=== PATIENT | male | born 1965 | race Caucasian/White ===

== ENCOUNTER 2019-04-15 06:58 | Inpatient (IN) | payer BC, OTHER ==
[~2019-04-15] VITALS: Ht 172.7 cm; Wt 79.8 kg
--- NOTE | ~2019-04-15 | O ---
[facility] [place] [address] OPERATIVE REPORT Name: NAIN GARCIA Room #: 457-P ADM IN M.R.#: [id number] Admission: 04/15/19 ������������������ Attend Phys: Greg Diaz MD Discharge: ������������������ Date of : 63 Report #: [id number] THIS REPORT FOR: //name// CC: [facility] physician/PCP Greg Franco DATE OF SERVICE: 04/16/2019 SURGEON: Rik Douglas DPM PREOPERATIVE DIAGNOSES: Osteomyelitis, right fifth metatarsal with nonhealing ulceration. POSTOPERATIVE DIAGNOSES: Osteomyelitis, right fifth metatarsal with nonhealing ulceration. PROCEDURE: 1. Resection of right fifth metatarsal and fifth toe (total fifth ray resection). 2. Skin flap, right foot. 3. Incision and drainage of abscess, right foot. ANESTHESIA: MAC. INJECTABLES: 28 mL of 0.5% Marcaine plain. HEMOSTASIS: Right ankle tourniquet at 275 mmHg. ESTIMATED BLOOD LOSS: Negligible. SUTURES: 3-0 nylon. SPECIMENS: Right fifth metatarsal and fifth toe. CULTURES: 1. Bone, right fifth metatarsal, aerobic and anaerobic. 2. Soft tissue, right foot, aerobic and anaerobic. COMPLICATIONS: None. DESCRIPTION OF PROCEDURE: The patient was brought to the OR and placed on the table supine with induction of MAC anesthesia. A well-padded right ankle pneumatic tourniquet was placed. Local anesthetic block was given to the foot, and the extremity was prepped and draped aseptically. The foot was exsanguinated with inflation of the tourniquet. A #10 scalpel was used to [facility] [address] [place] [address] OPERATIVE REPORT Name: NAIN GARCIA Room #: 457-P ADM IN M.R.#: [id number] Admission: 04/15/19 ������������������ Attend Phys: Greg Diaz MD Discharge: ������������������ Date of : 63 Report #: [id number] create a linear incision over the lateral fifth metatarsal extending circumferentially around the fifth toe. The fifth toe was disarticulated at the MTP joint and sent for pathology. Soft tissue envelope was dissected off the fifth metatarsal and there was extensive soft tissue infection with underlying necrotic bone. The distal fifth metatarsal was fractured, and the bone was discolored, soft, consistent with osteomyelitis. The entire fifth metatarsal shaft was discolored with surrounding infection; therefore, I disarticulated the entire fifth metatarsal from the cuboid and sent for pathology. A portion of bone was sent for aerobic and anaerobic cultures. Surrounding soft tissue was sent for the same cultures. I performed extensive soft tissue debridement and cauterization of the wound. It was irrigated with saline and bacitracin. I remodeled the skin and sutured the plantar lateral flap dorsally with 3-0 nylon. The entire wound was closed over a 0.5 inch Nu Gauze wick drain. The foot was cleansed and dried and wrapped with a sterile compressive bandage. I used Betadine-soaked Adaptic, fluffs, ABDs, Kerlix and Bradley bandages. The patient left the OR with no complications noted. ��������������������������������������������� ���������������������������������������� By: ��������������������������������������������� 0750 0808 Rik Douglas DPM /nt
[2019-04-15 10:40] VITALS: BP 144/68
[2019-04-15 11:29] LABS: ABSOLUTE NEUTROPHILS 5.5 thou/uL (1.4-8.2); BASOPHILS 0.8 % (0.0-2.0); EOSINOPHILS 0.3 % (0.0-3.0); HEMATOCRIT 41.2 % (42.0-52.0); HEMOGLOBIN 14.3 gm/dL (14.0-18.0); LYMPHOCYTES 13.7 % (24.0-44.0); MCH 30.8 pg (26.0-34.0); MCHC 34.8 g/dL (28.0-37.0); MCV 88.5 fL (80.0-100.0); MONOCYTES 8.7 % (1.0-8.0); PLATELET COUNT 269 thou/uL (150-400); POLYS 76.5 % (36.0-66.0); RBC 4.66 mil/uL (4.50-6.00); RDW 12.5 % (10.5-14.5); WBC 7.2 thou/uL (4.0-11.0)
[2019-04-15 11:43] LABS: ALBUMIN 2.9 g/dL (3.4-5.0); CALCIUM 9.5 mg/dL (8.5-10.1); CREATININE 1.2 mg/dL (0.7-1.3); MAGNESIUM 1.6 mg/dL (1.8-2.4); POTASSIUM 4.5 mmol/L (3.5-5.1); TOTAL BILIRUBIN 0.7 mg/dL (<0.1-1.0); TOTAL PROTEIN 7.5 g/dL (6.4-8.2)
[2019-04-15 15:00] VITALS: BP 134/66
[2019-04-15] MEDS ORDERED: LIPITOR10 MG PO (15:36)
[2019-04-15] MEDS ORDERED: LANTUS SUBQ (15:37)
[2019-04-15] MEDS ORDERED: CLEOCIN HCL150 MG PO (15:38)
--- NOTE | 2019-04-15 16:17 | NUR ---
DIRECT ADMIT FOR RIGHT FOOT WOUND. ALERT X4 FROM HOME WITH . HOME MEDS RECONCILED. AC/HS, PLACED ON FALL PRECAUTIONS DUE TO DRESSING ON RIGHT FOOT. ADMISSION HISTORY AND ASSESMENT COMPLETE.
[2019-04-15 19:56] VITALS: BP 118/58
--- NOTE | 2019-04-16 03:59 | NUR ---
ASSUMED CARE AROUND 1900. AXOX4. WOUND CARE DONE BECAUSE PER PT, WOUND WAS NEITHER MEDICATION WAS APPLIED NOR WOUND WAS CLEANED. DRESSING WAS CHANGED PER MD ORDER. RESPONDED TO ID CONSULT. NNO AT THIS TIME. R FOOT ELEVATED. NO S/S ACUTE DISTRESS NOTED OR REPORTED AT THIS TIME. WILL CONT TO MONITOR FOR ANY CHANGES IN CONDITION.
[2019-04-16 08:29] VITALS: BP 126/63
--- NOTE | 2019-04-16 12:43 | NUR ---
Assess due to pt with diabetic foot wound, wound care is following. Hx diabetes, poor controlled, A1C is pending, hospital BG [phone]. No significant wt changes. Appetite was reported as good and aware of need to eat adequate protein at meals. Pt requesting diet education. At this time, was getting ready to eat lunch, so requested to come back tomorrow. Low nutrition risk otherwise.
--- NOTE | 2019-04-16 14:38 | NUR ---
PT ADMITTED RELATED TO RIGHT FOOT WOUND. CM REVIEWED CHART AND SPOKE WITH CARE TEAM. CM MET WITH PT AT BEDSIDE THIS DAY. PT IS A&O X4. CM ROLE INTRODUCED. PT INDICATED HE LIVES IN A HOUSE WITH HIS AND 2 KIDS. PT INDICATED THERE ARE 9 STEPS TO ENTER AND 5 STEPS INSIDE. 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 PT INDICATED NO DME OF HH HX. PT'S PCP IS ARTHUR DSOS. PT INDICATED HE ANTICIPATES RETURNING HOME ONCE MEDICALLY STABLE. CM TO FOLLOW INDICATED WITH DC PLANNING.
[2019-04-16 15:02] VITALS: BP 148/73
--- NOTE | 2019-04-16 18:11 | NUR ---
Received awake on bed. Due medications given as prescribed. With wound at Right foot, seen by wound nurse today-dressing changed. For possible amputation, a/w schedule and further plans. On blood sugar monitoring- sliding scale insulin given as prescribed. Visited by relatives today. On room air. With SL at R arm, patent, infusing well. A+Ox4. Pt with podiatry consult- US called for consult. Lab called, urine specimen to be sent- specimen sent down to laboratory. Pt seen by Dr. Collazo this afternoon, pt's wound checked, wound re-dressed. Vital signs stable. No complaints of pain.
[2019-04-16 18:27] LABS: URINE BILIRUBIN NEGATIVE (Negative); URINE BLOOD NEGATIVE (Negative); URINE CLARITY CLEAR; URINE COLOR YELLOW; URINE GLUCOSE-RANDOM* 3+ (Negative); URINE KETONES TRACE (Negative); URINE LEUKOCYTES-REFLEX NEGATIVE (Negative); URINE NITRITE-REFLEX NEGATIVE (Negative); URINE PROTEIN (DIPSTICK) NEGATIVE (Negative); URINE SPECIFIC GRAVITY <= 1.005 (1.005-1.035); URINE UROBILINOGEN 0.2 E.U./dl (0.2-1.0)
[2019-04-16 19:11] VITALS: BP 134/75
[2019-04-17 00:07] LABS: GLYCOHEMOGLOBIN (HGB A1C) 13.1 % (4.8-5.6)
[2019-04-17 03:26] VITALS: BP 132/74
[2019-04-17 07:11] VITALS: BP 142/75
--- NOTE | 2019-04-17 08:58 | NUR ---
progress pt up ad sandie vss, iv antibiotics given as ordered, rates pain a 2 and denies need for medication. npo since mn pending upcoming right 5th toe amputation
[2019-04-17 14:32] VITALS: BP 146/77
--- NOTE | 2019-04-17 14:42 | NUR ---
PT GOING TO OR THIS DAY FOR SURGCAL DEBRIDEMENT. CM TO FOLLOW INDICATED REGARDING DC PLANNING.
--- NOTE | 2019-04-17 15:03 | NUR ---
WOUND CARE FOLLOW UP; DR PATEL AND ACE BARRETT SAW THIS PATIENT TODAY. NO CHANGES TODAY. CONTINUE DAKINS ORDERED.
[2019-04-17 19:41] VITALS: BP 125/64
--- NOTE | 2019-04-17 20:08 | NUR ---
ASSUMED CARE OF PATIENT AT 0715, PATIENT ALERT AND ORIENTED X 4. PATIENT UP AD FLOYD. RIGHT FOOT WOUND, DRESSING CHANGED THIS AFTERNOON. PATIENT NPO TODAY FOR SURGERY, DR PENA, RIGHT FIFTH TOE AMPUTATED. SURGERY WENT WELL, NO PAIN AFTER ARRIVAL TO THE UNIT. REPORT FROM YURY/RN, VITAL SIGNS STABLE. PATIENT RECEIVED IV ANTIBIOTICS ZOSYN AND VANCO IN SURGERY. PATIENT HAS RIGHT FOREARM IV IN PLACE AND REMAINS PATENT. X-RAY DONE POST OP TO RIGHT FOOT. BLOOD SUGAR 200, RECEIVED 3 UNITS, AND HAD DINNER TRAY. WILL CONTINUE TO MONITOR.
[2019-04-18 04:56] VITALS: BP 119/61
--- NOTE | 2019-04-18 06:22 | NUR ---
Assumed care at 1845. Pt resting in bed. AOX4. VSS. Post op vitals stable. Pt was able to urinate. Hasnt ambulated. Been using a urinal. Right foot dressing CDI. Called CHILD NUTRITION DIRECTOR because tylenol wasnt helping with pain. Got [place] approved. Ordered and received pressure boots from CS. Call light within reach. Bed in lowest position. Will continue to monitor.
[2019-04-18 07:24] VITALS: BP 113/72
--- NOTE | 2019-04-18 12:21 | HC ---
[facility] [place] [address] CONSULTATION Name: NAIN GARCIA Room #: 457-P ADM IN M.R.#: [id number] Admission: 04/15/19 ������������������ Attend Phys: Greg Diaz MD Discharge: ������������������ Date of : 63 Report #: [id number] THIS REPORT FOR: //name// CC: FAM physician/PCP Greg Franco DATE OF SERVICE: 04/16/2019 HISTORY OF PRESENT ILLNESS: This is a 53-year-old male patient who I saw in the clinic yesterday and admitted to the hospital. The patient is a 53-year-old male patient with history of diabetes over the last 3 decades. He has been poorly controlled and has sought most of his medical care at urgent cares. He has not been monitoring his blood glucose. He has developed an ulceration to his right fifth MTP region with subsequent cellulitis. It has been nonhealing despite local care. He has been on oral clindamycin and has had no improvement. He was referred to the wound center and due to the degree of infection and exposed bone, he was admitted for further evaluation and treatment. PAST MEDICAL HISTORY: Positive for diabetes mellitus, some clinical evidence of peripheral neuropathy is noted. He has hypertension, hyperlipidemia as well. SOCIAL HISTORY: The patient is a former smoker, admits to alcohol use on special occasions. No drug use. FAMILY HISTORY: Noncontributory. MEDICATIONS: Include atorvastatin, insulin, clindamycin. ALLERGIES: No known drug allergies. REVIEW OF SYSTEMS: CONSTITUTIONAL: The patient denies fever, chills or weight loss. NEUROLOGICAL: The patient does have some diminished light touch sensation of his lower extremities. ENT: The patient denies earache, nasal drainage, sore throat. CARDIOVASCULAR: The patient denies chest pain, palpitations or diaphoresis. PULMONARY: The patient denies cough or shortness of breath. GASTROINTESTINAL: The patient denies nausea, vomiting, diarrhea, abdominal pain. ORTHOPEDIC: The patient is aware of the ulceration, redness and drainage and some pain to his right foot. Other systems are negative. PHYSICAL EXAMINATION: VITAL SIGNS: At this time include temperature of 36.8, pulse 83, respiratory [address] [address] CONSULTATION Name: NAIN GARCIA Room #: 457-P ADM IN M.R.#: [id number] Admission: 04/15/19 ������������������ Attend Phys: Greg Diaz MD Discharge: ������������������ Date of : 63 Report #: [id number] rate 16, blood pressure 126/63. GENERAL: This is a well-developed, well-nourished patient who appears to be in no distress. HEENT: Head normocephalic. Nose and throat are clear. NECK: Supple. LUNGS: Clear. HEART: Regular. ABDOMEN: Soft. Bowel sounds present. EXTREMITIES: Lower extremities demonstrate palpable distal pulses. Normal capillary refill. He has significant erythema involving the lateral aspect of the right foot as well as a large ulceration with exposed bone at the fifth MTP. Since he has been on intravenous antibiotics, some of the redness has improved. LABORATORY DATA: Sodium 133, potassium 4.5, chloride 95, CO2 of 35, BUN 20, creatinine 1.2, glucose is 409, total bilirubin 0.7, AST 17, ALT 27, alkaline phosphatase 201. C-reactive protein 63.2, total protein 7.5, albumin is 2.9. White blood cell count 7.2 with a hemoglobin of 14.3. Sed rate is 47. MRI demonstrates evidence of osteomyelitis of the fifth metatarsal as well as the proximal phalanx of the fifth toe, some reactive osteitis involving the fourth metatarsal noted as well. CLINICAL IMPRESSION: 1. Diabetic foot ulceration to the right foot. 2. Diabetes type 2 with hyperglycemia. 3. Osteomyelitis of the right foot. 4. Normal arterial Doppler study. 5. Mild protein-calorie malnutrition. RECOMMENDATIONS: At this point in time, we have used topical Dakin moist gauze. He will continue on intravenous antibiotic therapy. Cultures are pending. We will consult Podiatry for likely a fifth ray resection. Discussed all of these issues with the patient, he is agreeable. He is encouraged that he will get resolution of the current foot infection and is motivated to improve his diabetic control. All questions have been answered. I appreciate being asked to see him in consultation. ��������������������������������������������� <ELECTRONICALLY SIGNED> ���������������������������������������� By: Greg Diaz MD ��������������������������������������������� 04/18/19 1221 1759 1750 Greg Diaz MD /nt
--- NOTE | 2019-04-18 13:55 | NUR ---
WOUND CARE FOLLOW UP; THE WOUND WAS NOT REMOVED A SURGICAL DRESSING IN PLACE. DR PATEL CONSULTING WITH THE PATIENT, DM EDUCATION, DIET ETC. RECOMMENDATION; CONTINUE CURRENT ORDERS. DISCUSSED WITH ARNOLD
[2019-04-18 14:25] VITALS: BP 131/64
--- NOTE | 2019-04-18 19:59 | NUR ---
PT A&OX4, VSS, PAIN IN RIGHT FOOT MANAGED WITH NORCO. PT WORKED WITH PHYSICAL THERAPY TODAY. UP IN RECLINER FOR TWO HOURS. FALL PRECAUTIONS IN PLACE. DRESSING C/D/I. NO DRESSING CHANGE UNTIL SURGEON SEES WOUND. WILL CONTINUE TO MONITOR.
[2019-04-18 20:39] VITALS: BP 149/75
--- NOTE | 2019-04-19 04:08 | NUR ---
Assumed pt care at 1900. Pt ia A/OX4,VSS. Up ad sandie,wears an ortho boot on Right foot sp 5th toe resection. Voiding clear yellow urine per urinal, medicated with Miralax at HS no BM reported at this time. C/o pain to right foot,medicated with 1 [place] per request with some relief reported. Reported quietly at this time with no distress noted. Will continue to monitor pt.
[2019-04-19 05:25] LABS: ABSOLUTE NEUTROPHILS 7.2 thou/uL (1.4-8.2); BASOPHILS 0.5 % (0.0-2.0); EOSINOPHILS 0.2 % (0.0-3.0); HEMATOCRIT 38.5 % (42.0-52.0); HEMOGLOBIN 13.4 gm/dL (14.0-18.0); LYMPHOCYTES 14.4 % (24.0-44.0); MCHC 34.7 g/dL (28.0-37.0); MCV 89.2 fL (80.0-100.0); MONOCYTES 8.7 % (1.0-8.0); PLATELET COUNT 216 thou/uL (150-400); POLYS 76.2 % (36.0-66.0); RBC 4.31 mil/uL (4.50-6.00); RDW 12.4 % (10.5-14.5); WBC 9.4 thou/uL (4.0-11.0)
[2019-04-19 05:34] LABS: CALCIUM 8.4 mg/dL (8.5-10.1); POTASSIUM 3.5 mmol/L (3.5-5.1)
[2019-04-19 06:30] VITALS: BP 152/75
--- NOTE | 2019-04-19 15:00 | NUR ---
WOUND CARE FOLLOW UP; ROUNDING WITH DR LARRY PATEL. THE WOUND WAS ASSESSED ENOUGH FOR A VISUSAL ASSESSMENT OF THE WOUND S/P TOE AMPUTATION. THE INC SITE WAS WELL APPROXIMATED. NO S/S OF INFECTION. RECOMMENDATION; AWAITING THE SURGEON'S RELEASE. DISCUSSED WITH ARNOLD
--- NOTE | 2019-04-19 15:08 | NUR ---
CARE TEAM INDICATED THAT PT WILL BE MEDICALLY STABLE TO DISCHARGE HOME TOMORROW 04/19/19. CM MET WITH PT AND INDICATED THAT CARE TEAM IS RECOMMENDING HOME INFUSION, HOME HEALTH, AND A FWW UPON DC. PT INDICATED NO PREFERENCE IN PROVIDERS. CM SENT REFERRAL TO [facility], AND [facility]. [facility] IS IN NETWORK AND INDICATED THAT PT'S BENEFIT COVERAGE IS FOLLOWS: $4000.00 OP OF WHICH $13.66 HAD BEEN MET. [facility] IS $213.12 BUT THEY WILL BILL THE INSURANCE DIRECTLY. [facility] CAN SEE PT MONDAY. THERAPY WILL NEED TO ISSUE FWW TO PT TOMORROW FROM [facility]. CM TO PROVIDE SCRIPT TO [facility]. ORDERS WILL NEEDS TO BE FAXED TO [facility] AT .
[2019-04-19 15:29] VITALS: BP 152/75
--- NOTE | 2019-04-19 16:01 | NUR ---
VASCULAR ACCESS TEAM CONSULTED FOR PICC FOR HOME ABX. PT'S LABS,MESS,HISTORY ORDER VERIFIED. DISCUSSED BENEFITS AND RISKS OF PICC WITH PT AND ,VERBALIZED UNDERSTANDING,CONSENT SIGNED.PT WAS PREPPED AND DRAPED FOR MAX BARRIER PRECAUTIONS. VERNA BASILIC WAS WIDELY PATENT WITH USG,1% LIDOCAINE GIVEN SQ. 4FR SL PICC TRIMMED TO 46CM INSERTED TO 1CM EXTERNAL. PICC SECURED. STAT CXR ORDERED.
--- NOTE | 2019-04-19 16:36 | NUR ---
CXR SHOWS KINK IN PICC, POWER FLUSHED REPOSITIONED, ANOTHER CXR ORDERED STAT
--- NOTE | 2019-04-19 16:56 | NUR ---
CXR SHOWED KINK IN LINE, POWER FLUSHED,REPOSITIONED. ANOTHER CXR DONE CONFIRMED PLACEMENT NOT KINKED, RELEASED FOR IMMEDIATE USE PER PROTOCOL
--- NOTE | 2019-04-19 17:06 | PATH ---
[facility] [address] [place] [address] PATHOLOGY RPT PROCEDURE Name: NAM GILBERT Room #: 457-P ADM IN M.R.#: [id number] ������������������ Admission: 04/15/19 ������������������ Date of : 63 Discharge: Report #: [id number] Path Case #: [id number] [facility] Accession Number: [id number] . 01 Material submitted: . toe - RIGHT 5TH METATARSAL. Modifiers: right, fifth . 01 Clinician provided ICD-10: M86.2 . 01 Clinical history: . Osteomyelitis right fifth metatarsal . 02 Diagnosis: Toe, right fifth metatarsal, amputation: - Marked acute osteomyelitis present underneath skin involving the underlying bone. - Margin viable and unremarkable on toe. - Separately submitted fragment showing acute osteomyelitis. (IUV:narayan; 04/19/2019) MBR/04/19/2019 . 02 Electronically signed: . Jessica Dow MD, Pathologist NPI- [id number] . 01 Gross description: . The specimen is received in formalin, labeled "Nam Gilbert, right fifth metatarsal". Received is an amputated digit measuring 4.8 x 2.4 x 2.2 m in greatest dimensions. The bone margin is smooth and concave, consistent with disarticulation. The bone and soft tissue margins are inked black. The nail is present, and is pale flood and grossly. The epidermal surface is slightly flaky in appearance. There is also a second segment of bone displaying one jagged margin and one smooth, with the articulated margin measuring 6.6 x 2.3 x 1.8 cm in greatest dimensions. The jagged margin is inked blue. Also received within the specimen container are multiple segments of pale flood skin admixed with necrotic-appearing soft tissue measuring 5.6 x 4.4 x 2.2 cm in aggregate dimensions. The specimen is submitted representatively as follows: . A1-A2 full-thickness longitudinal cross-section of digit, from proximal to distal aspects, following decalcification A3-A5 full-thickness longitudinal cross-section of separately submitted segment of bone, following decalcification A6 sales representative raw fibers sections of separate submitted skin and soft tissue. (CAA; 04/18/2019) [facility]/[address] [address] PATHOLOGY RPT PROCEDURE Name: NAM GILBERT Room #: 457-P ADM IN M.R.#: [id number] ������������������ Admission: 04/15/19 ������������������ Date of : 63 Discharge: Report #: [id number] Path Case #: [id number] . 02 Pathologist provided ICD-10: M86.171 . 02 CPT . [id number] Specimen Comment: A courtesy copy of this report has been sent to Specimen Comment: [phone], , . Specimen Comment: Report sent to ,DR PATEL / DR DOAN Performed at: [address], [place] [id number] MD Rosendo Kim MD Phone: [phone] Performed at: [address] [id number] MD Jessica Dow MD Phone: [phone]
--- NOTE | 2019-04-19 18:49 | NUR ---
PT A&OX4, VSS, PAIN IN RIGHT FOOT MANAGED WITH NORCO. PT HAS BOOT IN PLACE. DRESSING C/D/I. NO NEW DRESSING ORDER GIVEN OF YET. PATIENT HAD PICC PLACED IN RIGHT UPPER ARM. AT BEDSIDE, WILL CONTINUE TO MONITOR.
[2019-04-19 19:16] VITALS: BP 141/62
--- NOTE | 2019-04-20 02:52 | NUR ---
ASSUMED CARE AROUND 1899. AXOX4. S/P R FOOT 5TH TOE AMPUTATION. R FOOT DRESSING CDI ELEVATED. PER DAY RN, PT HAS CLEARANCE FROM PT TO BE UP AD FLOYD. PAIN TX PER MD ORDER. PICC LINE INTACT. NO S/S ACUTE DISTRESS NOTED OR REPORTED AT THIS TIME. WILL CONT TO MOITOR FOR ANY CHANGES IN CONDITION.
[2019-04-20 05:44] VITALS: BP 135/57
[2019-04-20 07:14] VITALS: BP 133/66
[2019-04-20] MEDS ORDERED: LANTUS100 UNIT/M SUBQ (08:19)
[2019-04-20] MEDS ORDERED: MAGNESIUM400 MG PO (08:19)
[2019-04-20 15:40] VITALS: BP 142/61
--- NOTE | 2019-04-20 20:16 | NUR ---
ASSUMED CARE OF PATIENT AT 0715, PATIENT ALERT AND ORIENTED X 4. PATIENT UP AD FLOYD, PATIENT HAS RIGHT FOOT DRESSING IN PLACE, WITH ORTHO SHOE IN PLACE. PATIENT NOT A FALL RISK, CLEARED BY PHYSICAL THERAPY TO BE UP AD FLOYD. PATIENT HAS RIGHT UPPER ARM SINGLE LUMEN PICC LINE. STILL WAITING ON CULTURE RESULTS FOR IV ANTIOBIOTICS FOR HOEM INFUSION. DR SCOTT HERE THIS AM, STARTED DISCHARGE PROCESS, LEFT SCRIPTS. PATIENT C/O PAIN THIS SHIFT AND RECEIVED HYDROCODONE X 2. WILL AWAIT ORDERS FOR ANTIBIOTICS FOR HOME. WILL CONTINUE TO MONITOR.
[2019-04-20 21:00] VITALS: BP 159/72
[2019-04-21 04:20] VITALS: BP 130/70
--- NOTE | 2019-04-21 05:51 | NUR ---
PT AMBULATING TO BATHROOM WITH WALKER INDEPENDENTLY AND IS TOLERATING FAIR. DENIES NEED FOR PAIN MEDICATION. IV ANTIBIOTICS RESTARTED. PLAN FOR POSSIBLE DISCHARGE HOME 04/21 WITH HOME HEALTH. RIGHT FOOT DRESSING CHANGED. RESTING COMFORTABLY. NO NEEDS VOICED. CALL LIGHT WITHIN REACH. WILL CONTINUE TO PROVIDE FREQUENT OBSERVATION.
[2019-04-21 08:00] VITALS: BP 142/79
--- NOTE | 2019-04-21 09:34 | NUR ---
PATIENT CARE WAS ASSUMED AT 0715.PATIENT IS ALERT AND ORIENTED X4.PATIENT IS RESTING IN BED.PT HAS IV PICC LINE INTACT, AND SALINE LOCKED.PT HAS NO COMPLAINS OF PAIN AT THIS TIME. PT HAS CALL LIGHT, PHONE, AND PERSONAL BELONGINGS WITHIN REACH.
[2019-04-21] MEDS ORDERED: NOVOLOG100 UNIT/1 SUBQ (10:46)
[2019-04-21] MEDS ORDERED: LANTUS100 UNIT/M SUBQ (10:46)
[2019-04-21] MEDS ORDERED: HYDROCODON-ACE1 EAC7 PO (13:23)
== END 2019-04-21 14:17 | disposition home health service (06) | DRG 617 ==
LOC: HYPER 06:58 → 4W 10:26 → HYPER 15:05 → 4W 04-21 14:17
PROVIDERS: Nurse Practitioner; Specialist; ADMIT Hospitalist
PROC: 02HV33Z Insertion of Infusion Device into Superior Vena Cava, Percutaneous Approach (ICD-10-PCS; principal; 2019-04-19)
PROC: 0Y6M0Z8 Detachment at Right Foot, Complete 5th Ray, Open Approach (ICD-10-PCS; 2019-04-19)
DX: E11.621 Type 2 diabetes mellitus with foot ulcer (principal); M86.8X7 Other osteomyelitis, ankle and foot; E44.1 Mild protein-calorie malnutrition; L03.115 Cellulitis of right lower limb; E11.69 Type 2 diabetes mellitus with other specified complication; E11.42 Type 2 diabetes mellitus with diabetic polyneuropathy; E11.65 Type 2 diabetes mellitus with hyperglycemia; E83.42 Hypomagnesemia; I10 Essential (primary) hypertension; E78.5 Hyperlipidemia, unspecified; Z87.891 Personal history of nicotine dependence; Z68.26 Body mass index [BMI] 26.0-26.9, adult
CPT/HCPCS: 10047; 27000; 50101; 50386; 50951; 56527; 57091; 62110; 62850; 70005